=== PATIENT | male | born 1960 | race Asian ===

== ENCOUNTER 2023-05-12 13:57 | Outpatient (CLI) | payer OTHER, MEDICAID, SELFPAY | END 2023-05-12 13:58 | disposition home or self-care (01) | LOC: AMB 05-14 03:12 | PROVIDERS: Visit Provider Emergency Medicine Emergency Medical Services | DX: S09.90XA Unspecified injury of head, initial encounter (principal); R42 Dizziness and giddiness; V48.1XXA Car passenger injured in noncollision transport accident in nontraffic accident, initial encounter; Y92.410 Unspecified street and highway as the place of occurrence of the external cause | CPT/HCPCS: A0425; A0429 ==

== ENCOUNTER 2023-05-12 14:46 | Emergency (ER) | payer OTHER, MEDICAID, SELFPAY ==
[2023-05-12 14:49] VITALS: BP 127/84; PULSE 71; RESP 16; TEMP 36.4; O2SAT 95; BMI 27.4
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
== END 2023-05-12 16:08 | disposition home or self-care (01) ==
PROVIDERS: Emergency Provider Family Medicine
DX: S46.911A Strain of unspecified muscle, fascia and tendon at shoulder and upper arm level, right arm, initial encounter (principal); V49.9XXA Car occupant (driver) (passenger) injured in unspecified traffic accident, initial encounter; Y93.29 Activity, other involving ice and snow
CPT/HCPCS: 73030; 99284; 99285; 99291